=== PATIENT | male | born 1975 | race African-American/Black ===

== ENCOUNTER 2018-10-19 18:05 | Emergency (ER) | payer OTHER ==
[~2018-10-19] VITALS: Ht 188 cm; Wt 204.1 kg
[2018-10-19] MEDS ORDERED: NIFEDIPINE 10 MG CAP PO ONE (18:30)
--- NOTE | 2018-10-19 19:14 | Diagnostic Imaging Report ---
Radiographs of the right knee - 3 views HISTORY: Pain COMPARISON: None available. FINDINGS: Bones: No acute displaced fracture. Osseous alignment is within normal limits. Joints: The joint spaces are well-maintained. Soft tissues: The soft tissues appear unremarkable. IMPRESSION: No acute radiographic abnormality. Signed by: Dr. Johnny Thomas M.D. on 10/19/2018 7:10 PM
[2018-10-19 20:10] VITALS: BP 165/111
== END 2018-10-19 20:11 | disposition home or self-care (01) ==
LOC: ER 18:05
DX: M25.561 Pain in right knee (principal); S83.411A Sprain of medial collateral ligament of right knee, initial encounter; W01.0XXA Fall on same level from slipping, tripping and stumbling without subsequent striking against object, initial encounter; Y92.008 Other place in unspecified non-institutional (private) residence as the place of occurrence of the external cause; I10 Essential (primary) hypertension
CPT/HCPCS: 99283